=== PATIENT | male | born 1950 | race Hispanic/Latino ===

== ENCOUNTER 2018-02-06 07:13 | Day surgery (SDC) | payer MEDICARE, OTHER ==
[2018-02-06] MEDS ORDERED: ceFAZolin 1 gm FROZEN Premix 0 GM/0 ML ML IVPB ONE (07:51)
[2018-02-06] MEDS ORDERED: Bupivacaine-Epi 0.5%-1:200,000 PF Inj IJ ONE (09:02)
--- NOTE | 2018-02-06 10:01 | CP.PCM.PN ---
Subjective - Date & Time of Evaluation Date of Evaluation: 02/06/18 Time of Evaluation: 10:00 - Subjective Subjective: procedure cancelled due to skin infection in groin Objective - Vital Signs/Intake and Output Vital Signs (last 24 hours): Temp Pulse Resp BP Pulse Ox 98.1 F 71 18 151/87 H 97 02/06/18 07:57 02/06/18 07:57 02/06/18 07:57 02/06/18 07:57 02/06/18 07:57
[2018-02-06 11:18] VITALS: BP 151/87; PULSE 71; RESP 18; TEMP 98.1; O2SAT 97
--- NOTE | 2018-02-06 21:18 | OP ---
PROCEDURE DATE: 02/06/2018 The patient was seen at the hospital today. Plan is to repair left inguinal hernia. However, he has a skin infection in the groin consistent with a furuncle. He was given prescription for antibiotics. Procedure was canceled and this will be rescheduled in the near future. Ricardo Adams Jr., MD
== END 2018-02-06 09:57 | disposition home or self-care (01) ==
LOC: C.SDS 07:13
PROVIDERS: ATTEND Surgery Vascular Surgery
DX: Z53.9 Procedure and treatment not carried out, unspecified reason (principal); L02.221 Furuncle of abdominal wall

== ENCOUNTER 2018-04-29 09:59 | Outpatient (CLI) | payer MEDICARE, OTHER | END 2018-04-29 10:00 | disposition home or self-care (01) | LOC: C.PAT 09:59 | DX: Z01.818 Encounter for other preprocedural examination (principal) ==

== ENCOUNTER 2018-05-06 06:04 | Day surgery (SDC) | payer MEDICARE, OTHER | END 2018-05-06 12:54 | disposition home or self-care (01) | LOC: C.SDS 06:04 | DX: K40.90 Unilateral inguinal hernia, without obstruction or gangrene, not specified as recurrent (principal); K40.30 Unilateral inguinal hernia, with obstruction, without gangrene, not specified as recurrent; Z87.891 Personal history of nicotine dependence ==

== ENCOUNTER 2018-05-28 09:53 | Emergency (ER) | payer MEDICARE, OTHER ==
[2018-05-28] MEDS ORDERED: Lidocaine 2% Jelly (Uro-Jet) ONE (10:47)
[2018-05-28] MEDS ORDERED: Sodium Chloride 0.9% 1,000 ML IV ONE (10:55)
[2018-05-28] MEDS ORDERED: Sodium Chloride 0.9% 1,000 ML ONE (11:05)
--- NOTE | 2018-05-28 11:09 | C.PDOC ---
History Of Present Illness Patient is a 68 y/o M with remote history of BPH, noncompliant with flomax, presenting with urinary hesistancy. He reports that he had hernia surgery 1 month ago but that did not include mahmood catheter. He reports that he was in Bre Adams's office today and after complaining of fever to 101 on Sunday and Sunday (3 days ago) as well as hesitancy, frequency, dribbling, and dysuria, was sent to ED to evaluate for urinary retention. Time Seen by Provider: 05/28/18 10:28 Chief Complaint (Nursing): Male Genitourinary History Per: Patient History/Exam Limitations: no limitations Onset/Duration Of Symptoms: Days (x3 ) Current Symptoms Are (Timing): Still Present Past Medical History Reviewed: Historical Data, Nursing Documentation, Vital Signs Vital Signs: Last Vital Signs Temp 98.6 F 05/28/18 10:08 Pulse 95 H 05/28/18 10:08 Resp 20 05/28/18 10:08 BP 142/82 05/28/18 10:08 Pulse Ox 95 05/28/18 10:08 - Medical History PMH: HTN (Not on medication) Family History: States: No Known Family Hx - Social History Hx Alcohol Use: No Hx Substance Use: No - Immunization History Hx Tetanus Toxoid Vaccination: No Hx Influenza Vaccination: Yes Hx Pneumococcal Vaccination: No Review Of Systems Constitutional: Negative for: Fever, Chills Respiratory: Negative for: Shortness of Breath Gastrointestinal: Negative for: Abdominal Pain Genitourinary: Positive for: Other (urinary hesitancy). Negative for: Dysuria, Frequency, Incontinence, Hematuria, Penile Discharge Musculoskeletal: Negative for: Back Pain Skin: Negative for: Rash Neurological: Negative for: Weakness, Numbness Psych: Negative for: Anxiety Physical Exam - Physical Exam Appears: Non-toxic, No Acute Distress Skin: Warm, Dry Head: Normacephalic Cardiovascular: Rhythm Regular Respiratory: Normal Breath Sounds Gastrointestinal/Abdominal: Soft, No Tenderness, No Distention, No Guarding, No Rebound, Other (well-healing scar to LLQ ) Back: No CVA Tenderness Male Genital: Circumcised, No Other (penile discharge) Extremity: Normal ROM (x4) Neurological/Psych: Oriented x3, Normal Speech, Normal Cognition, Normal Motor, Normal Sensation ED Course And Treatment - Laboratory Results Result Diagrams: 05/28/18 11:05 05/28/18 11:05 O2 Sat by Pulse Oximetry: 95 (RA) Pulse Ox Interpretation: Normal Medical Decision Making Medical Decision Making: Plans: -- blood work -- chem labs -- ibuprofen -- rocephin -- IV fluids Bladder scan shows 30cc. Post void residual was 20cc measured with straight catheter.. 11:37AM UA positive. No recent history of mahmood catheters and has not been hospitalized in 1 month. He has normal kidney function and is not in urinary retention. Spoke to Dr. Adams as he sent the patient to ED for evaluation. Patient is well appearing, toleraring po and afebrile. Will discharge patient with antibiotics and urology referral Disposition - Disposition Referrals: Júnior Flowers Jr., MD [Staff Provider] - Disposition: HOME/ ROUTINE Disposition Time: 11:38 Condition: GOOD Additional Instructions: Follow-up with PMD within 2 days. Follow-up with urology. Return immediately with any worsening symptoms. Take full course of antibiotics. Prescriptions: Cephalexin [cephalexin] 500 mg PO BID #20 cap Instructions: Urinary Tract Infection, Adult (DC) Forms: [employer] ([employer]) (Serbian) - Clinical Impression Clinical Impression: UTI (urinary tract infection) - Scribe Statement The provider has reviewed the documentation as recorded by the Yashibmaria dolores Hopper Do Provider Attestation: All medical record entries made by the Scribe were at my direction and personally dictated by me. I have reviewed the chart and agree that the record accurately reflects my personal performance of the history, physical exam, medical decision making, and the department course for this patient. I have also personally directed, reviewed, and agree with the discharge instructions and disposition.
[2018-05-28 11:12] LABS: MEAN CELL VOLUME 93.6 fL (80.0-94.0); MEAN CORPUSCULAR HEMOGLOBIN 32.2 pg (27.0-31.0); MEAN CORPUSCULAR HGB CONC 34.4 g/dL (33.0-37.0); MEAN PLATELET VOLUME 7.3 fL (7.2-11.7); RBC 4.4 Mil/uL (4.40-5.90); RED CELL DISTRIBUTION WIDTH 13.3 % (11.5-14.5)
[2018-05-28 11:13] LABS: SQUAMOUS EPITHIAL 2 /hpf (0-5); URINE AMORPHOUS SEDIMENT RARE /ul (<OCC); URINE BACTERIA FEW (<OCC)
[2018-05-28 11:14] LABS: URINE CLARITY Hazy (Clear); URINE COLOR YELLOW (YELLOW)
[2018-05-28 11:15] LABS: URINE BILIRUBIN NEGATIVE (NEGATIVE); URINE GLUCOSE (UA) NEGATIVE (Normal)
[2018-05-28 11:17] LABS: HEMOGLOBIN 14.2 g/dL (12.0-18.0); WHITE BLOOD COUNT 11.7 K/uL (4.8-10.8)
[2018-05-28 11:17] LABS: PH,URINE 5.5 (5.0-8.0); URINE BLOOD LARGE (NEGATIVE); URINE PROTEIN 30 mg/dL (NEGATIVE); URINE UROBILINOGEN 0.2 mg/dL (0.2-1.0)
[2018-05-28 11:18] LABS: URINE LEUKOCYTE ESTERASE NEG Leu/uL (Negative)
[2018-05-28 11:25] LABS: ALB/GLOB RATIO 1.2 (1.0-2.1); ALBUMIN 3.9 g/dL (3.5-5.0); ALT/SGPT 22 U/L (21-72); AST/SGOT 25 U/L (17-59); BLOOD UREA NITROGEN 12 mg/dL (9-20); CALCIUM 8.5 mg/dl (8.6-10.4); GFR NON-AFRICAN AMERICAN > 60
[2018-05-28] MEDS ORDERED: cefTRIAXone IV 1 gm in Dextros 1 GM in Dextrose 5% In Water 50 ML IVPB STA (11:56)
[2018-05-28 12:43] VITALS: BP 142/76; PULSE 68; RESP 18; TEMP 97.9
[2018-05-28 12:54] VITALS: O2SAT 95
== END 2018-05-28 12:30 | disposition home or self-care (01) ==
LOC: C.ER 09:53
DX: N39.0 Urinary tract infection, site not specified (principal); I10 Essential (primary) hypertension; N40.0 Benign prostatic hyperplasia without lower urinary tract symptoms
CPT/HCPCS: 80053; 81001; 85027; 87086; 96361; 96365; 99285; J0696; J7030